=== PATIENT | male | born 1950 | race Caucasian/White ===

== ENCOUNTER 2021-09-18 05:46 | Emergency (ER) | payer MEDICARE, BC ==
[~2021-09-18] VITALS: Ht 167.6 cm; Wt 78.2 kg
[2021-09-18 05:46] VITALS: BP 180/86
[2021-09-18] MEDS ORDERED: OMEP-173 PO (06:01)
[2021-09-18] MEDS ORDERED: SIMV40TA20 PO (06:01)
[2021-09-18] MEDS ORDERED: XALA0.007 OU (06:01)
[2021-09-18] MEDS ORDERED: FINA5TAB2 PO (06:01)
[2021-09-18] MEDS ORDERED: OLME40TA PO (06:01)
[2021-09-18] MEDS ORDERED: PROV108A INH (06:01)
== END 2021-09-18 08:06 | disposition home or self-care (01) ==
LOC: M ED 05:46
DX: H53.9 Unspecified visual disturbance (principal); I10 Essential (primary) hypertension; E78.5 Hyperlipidemia, unspecified; Z88.2 Allergy status to sulfonamides; Z79.899 Other long term (current) drug therapy